=== PATIENT | female | born 2005 | race Two or more races ===

== ENCOUNTER 2024-06-25 04:31 | Inpatient (IN) | payer MEDICAID, SELFPAY ==
[2024-06-25] VITALS (22 sets, daily range): BP systolic 121–183; BP diastolic 63–112; PULSE 77–131; RESP 18; TEMP 36.8–37.2; O2SAT 96–100; BMI 35.6
[2024-06-25] MEDS: fentaNYL CIT INJ 50 mCg/ML AMP 2ML 100 MCG IV ×3 (05:17→07:27)
--- NOTE | 2024-06-25 05:26 | XR_ITS ---
Examination: age Limited Technique: Limited transabdominal sonographic images pelvis Indications: Pelvic contractions today, unknown presentation unknown weight Exam date and time: June 23, 2024 0550 hrs. Findings: Viable intrauterine gestation cephalic presentation spine anterior Estimated weight 3191.9 g Impression: Viable intrauterine gestation cephalic presentation
[2024-06-25 05:35] LABS: Basophils % (Auto) 0 % (0-2.5); Eosinophils # (Auto) 0.1 Thou/mm3 (0.0-0.5); Eosinophils % (Auto) 1 % (0-10); Hematocrit 40.5 % (36.0-46.0); Hemoglobin 13.6 g/dL (12.0-16.0); Immature Granulocytes % (Auto) 1 % (0-0); Immature Granulocytes Auto 0.13 Thou/mm3 (0.00-0.00); Lymphocytes # (Auto) 3.9 Thou/mm3 (1.0-4.8); Lymphocytes % (Auto) 26 % (10-50); Mean Corpuscular HGB Conc 33.6 g/dl (31.0-37.0); Mean Corpuscular Hemoglobin 29.2 pg (25.0-35.0); Mean Corpuscular Volume 87 fL (80-100); Monocytes # (Auto) 1.4 Thou/mm3 (0.0-0.8); Monocytes % (Auto) 9 % (0-12); Neutrophils # (Auto) 9.5 Thou/mm3 (1.8-7.7); Neutrophils % (Auto) 63 % (37-80); Nucleated Red Blood Cell % 0 /100 WBC (0); Platelet Count 140 Thou/mm3 (140-440); RDW Standard Deviation 43.2 fL (36.4-46.3); Red Blood Count 4.65 Miln/mm3 (4.00-5.20)
[2024-06-25 05:52] LABS: Fibrinogen 409 mg/dL (175-375); INR 0.9 (0.9-1.3); Prothrombin Time 10.3 Seconds (9.0-12.2)
[2024-06-25 05:54] LABS: Alanine Aminotransferase 12 U/L (10-49); Albumin, Serum 4.3 gm/dL (3.5-5.0); Albumin/Globulin Ratio 1.8 (1.2-2.2); Alkaline Phosphatase 216 U/L (46-116); Anion Gap 11 (7-16); Aspartate Amino Transferase 24 U/L (0-34); BUN/Creatinine Ratio 14 Ratio (12-20); Bilirubin,Total 0.3 mg/dL (0.3-1.2); Blood Urea Nitrogen 10 mg/dL (9-23); Calcium 9.6 mg/dL (8.3-10.6); Calcium (Corrected) 9.6 mg/dL (8.5-10.1); Carbon Dioxide 22.2 mMol/L (20.0-31.0); Chloride 102 mMol/L (98-107); Creatinine (Component) 0.7 mg/dL (0.6-1.3); Globulin 2.4 gm/dL (2.3-3.5); Glucose 98 mg/dL (74-106); Osmolality,Calculated 269 (275-295); Potassium 3.9 mMol/L (3.4-5.1); Sodium 135 mMol/L (136-145); Total Protein 6.7 gm/dL (5.7-8.2); Uric Acid 4.8 mg/dL (3.1-7.8); eGFR > 60 See Note
[2024-06-25 06:11] LABS: Syphilis Nonreactive (Nonreactive)
[2024-06-25] MEDS: MINERAL OIL 30 ML UDC TOP (06:58)
[2024-06-25] MEDS: OXYTOCIN in NS 20 units 20 UNIT/1,000 ML BAG 125 UNIT IV (07:15)
[2024-06-25] MEDS: LIDOCAINE HCL 1% 20 ML VIAL INFL (07:20)
[2024-06-25] MEDS: BENZO/LANO/ALOE (Dermoplast) 60 GM CAN 1 SPRAY TOP (07:32)
[2024-06-25] MEDS: TRANEXAMIC ACID 1,000 MG IVPB 1,000 MG/100 ML BAG 200 MG IV (07:32)
--- NOTE | 2024-06-25 07:37 | ESHP_ITS ---
Documentation for date of: 06/25/24 OB Labor/Induct. HPI History of Present Illness Chief complaint: 19 y/o 39w 1d presents to L&D in active labor at 6 cm : 1 Para: 0 Term pregnancies: 0 pregnancies: 0 Living children: 0 History of Abortions: Spontaneous and Elective: 0 History of Vaginal deliveries: 0 History of sections: No History of : No Date of last menstrual period: 09/25/23 USAMA: 07/01/24 Gestational Age (weeks): 39 Gestational Age (days): 1 Gestational age based on last menstrual period: 39 History of present illness: 19 y/o 39w 1d presents to L&D in active labor at 6 cm vertex breanne 2- 3 minutes SROM clear fluids, GBS neg. Blood Type is O+ and Rubella NI. has been complicated by GTHN on labetalol 100 mg once daily. EFW 4000g History of Present Dating criteria: LMP confirmed by 1st trimester US Adequate Care: Yes Ultrasounds: normal 1st trimester US and normal mid trimester US Obstetrical complications: gestational hypertension Labs Maternal Blood Type: O Pos Labs: Negative: RPR, Hepatitis B, Rubella Titre, HIV, Chlamydia, Gonorrhea and Group Beta Strep and Unknown: Herpes Type 1, Herpes Type 2 and Covid-19 Review of Systems Review of Systems Systems Reviewed: All systems reviewed, normal except as documented Past Medical History Surgical History SURGICAL: Negative Section Meds Home Medications and Allergies Home Medications ?Medication ?Instructions ?Recorded ?Confirmed ?Type folic acid 800 mcg tablet 800 mcg PO QDAY 03/01/24 03/01/24 History vits no.126-ferrous fum 1 tab PO QDAY 03/01/24 03/01/24 History 28 mg iron-folic acid 800 mcg tablet (Classic ) Allergies Allergy/AdvReac Type Severity Reaction Status Date / Time No Known Allergies Allergy Mild Uncoded 10/16/12 18:14 OB Exam Physical Exam Vital signs: Pulse BP Pulse Ox 120 H 141/75 H 100 06/25/24 07:22 06/25/24 07:22 06/25/24 04:42 Constitutional Constitutional: moderate distress (Secondary to painful contractions) Routine HEENT Exam Head: Present normocephalic and atraumatic Eye: Present EOMI, PERRL and normal accommodation ENT: Present mucous membranes moist Routine Neck Exam Neck: Present supple, full ROM and trachea midline Routine Respiratory Exam Respiratory: Absent respiratory distress Routine Cardiovascular Exam Cardiovascular: Present RRR Routine Abdominal Exam Abdominal: Present soft Comments: Gravid uterus Estimated weight is 4000 Routine Exam External: Present normal urethra appearance; Absent lesions Detailed Labor and Delivery Exam Dilation (cm): 6 Effacement (%): 100 Cervix position: mid station: 0 Consistency: soft Presentation: Vertex Membranes: ruptured Amniotic fluid: clear Baseline heart rate: 130 monitor accelerations: 15x15 monitor decelerations: None terminal computer operator variability: Moderate (11-25) Contraction frequency (min): 2-3 Contraction duration (sec): 40-60 Contraction intensity: Strong Routine Extremities Exam Extremities: Present full ROM Routine Back/Spine/Pelvis Exam Back/Spine: Present full ROM Routine Skin Exam Skin: Present intact, dry and warm Routine Neurological Exam Neurological: Present alert, oriented X3 and CN II-XII intact Routine Psychiatric Exam Psychiatric: Present normal affect and normal thought process OB Results Labs 06/25/24 04:55 06/25/24 04:55 Labs: Short CBC 06/25/24 Range/Units 04:55 WBC 15.0 H (4.5-11.0) Thou/mm3 Hgb 13.6 (12.0-16.0) g/dL Hct 40.5 (36.0-46.0) % Plt Count 140 (140-440) Thou/mm3 BMP 06/25/24 04:55 Sodium 135 L Potassium 3.9 Chloride 102 Carbon Dioxide 22.2 BUN 10 Creatinine 0.7 Glucose 98 Calcium 9.6 Liver Function 06/25/24 Range/Units 04:55 Total Bilirubin 0.3 (0.3-1.2) mg/dL AST 24 (0-34) U/L ALT 12 (10-49) U/L Alkaline Phosphatase 216 H (46-116) U/L Albumin 4.3 (3.5-5.0) gm/dL OB Assessment & Plan Assessment and Plan (1) Normal labor: Status: Acute (2) Gestational hypertension: Status: Acute (3) with 39 completed weeks gestation: Status: Acute Additional Plan Induction method: none Plan: anticipate NVD and consult MD gross Additional Plan Comment: Routine admit orders Continuous EFM PIH labs (2) Gestational hypertension Qualifiers: Trimester: third trimester Qualified Code(s): O13.3 - Gestational [- induced] hypertension without significant proteinuria, third trimester
--- NOTE | 2024-06-25 07:44 | OBDSUM_ITS ---
Data ([facility]) Data Hx Section: No Maternal Blood Type: O Pos Rubella Titre: Negative RPR: Non-reactive Labs: Negative: RPR, Hepatitis B, HIV, Chlamydia, Gonorrhea and Group Beta Strep and Unknown: Herpes Type 1 and Herpes Type 2 : 1 Para: 0 Term: 0 : 0 Livin : 0 Delivery Data ([facility]) Labor Data Stimulated/Augmented: No Induction: No ROM Date: 06/25/24 ROM Time: 03:40 Rupture Type: SROM Amniotic Fluid: Clear Delivery Data EDC: 07/01/24 EDC calculated by:: LMP/early US confirmation Labor Onset Stage 1 Date: 06/25/24 Labor Onset Stage 1 Time: 04:45 Labor Onset Stage 2 Date: 06/25/24 Labor Onset Stage 2 Time: 06:50 Delivery Date: 06/25/24 Delivery Time: 07:15 Gestational age (weeks): 39 Gestational age (days): 1 Placenta Delivery Date: 06/25/24 Placenta Delivery Time: 07:27 Delivered by: Christianne Adkins Delivery nurse: Adry De Wreath And Garland Maker Hand at delivery: No Support person(s) at delivery: FOB Other staff at delivery: Nursery Nurse Other staff at delivery: Syl Cabrera Delivery Method Delivery: Vaginal Delivery Type: Spontaneous Presentation: Vertex Anesthesia Type Primary Anesthesia: Local Delivery Room Medications Other Intrapartum Medications: No Post Delivery Medications N/A: No Placenta Placenta Delivery: Spontaneous Placenta Cultures Obtained: No Placenta Sent for Examination: No Cord Sample: Cord Blood Obtained Episiotomy Episiotomy: None Lacerations #1: Labial: Right labial Perineal repair Sutures used for repair: 3.0 Vicryl (CT) EBL Estimated blood loss (ml): 300 Umbilical Cord Umbilical Vessels: 3 Nuchal Cord: Not Applicable Body Cord: Not Applicable Additional Procedures Patient came in at 6 cm and became complete within an 40 minutes of arrival. After a few pushes patient had an of a viable male . Infant's anterior shoulder delivered with gentle downward traction subsequent delivery the posterior shoulder and the body without complications. placed on mother's abdomen. Vigorous cry upon delivery. Cord was clamped. Cut by FOB. Cord blood obtained. Three-vessel cord noted. Placenta expelled spontaneously and intact. Patient sustained a small right labial laceration repair. Repaired using a 4.0 Vicryl on an SH suture. Perineum intact. Excellent hemostasis achieved after vigorous fundal massage and removal of clots from the posterior fornix. EBL 300. Sponge and needle count correct. Mother and baby stable, skin to skin and bonding in LDR. Data ([facility]) [place] Data Gender: Male Weight Grams: 4030 1 Minute Total: 7 5 Minute Total: 8
--- NOTE | 2024-06-25 07:56 | PRELIM_ITS ---
Obstetric ultrasound (limited). June 25, 2024 0550 hours Clinical history: Presentation and EFW C omparison: No prior study is available for comparison. Findings:There is a gravid uterus with a fetus in cephalic presentation of mean gestational age 37 weeks and 6 days (by biometry). Estimated weight is 3191.9 grams+/- 472 grams. Estimated due date by ultrasound is 07/10/2024.Impression: Gravid uterus with a single fetus in cephalic presentation of mean gestational age 37 weeks 6 days. R eport Electronically Signed By: Juan Miguel Vines 06/25/2024 7:56:42 AM [EST]
[2024-06-25] MEDS: DOCUSATE SOD 100 MG CAPSULE PO (08:22)
[2024-06-25] MEDS: LABETALOL 100 MG TABLET PO (08:23)
[2024-06-25] MEDS: IBUPROFEN TAB 400 MG TABLET 800 MG PO (09:01)
[2024-06-25 13:03] LABS: Basophils % (Auto) 0 % (0-2.5); Eosinophils % (Auto) 0 % (0-10); Hematocrit 35.3 % (36.0-46.0); Hemoglobin 12.2 g/dL (12.0-16.0); Immature Granulocytes % (Auto) 1 % (0-0); Immature Granulocytes Auto 0.12 Thou/mm3 (0.00-0.00); Lymphocytes # (Auto) 1.9 Thou/mm3 (1.0-4.8); Lymphocytes % (Auto) 9 % (10-50); Mean Corpuscular HGB Conc 34.6 g/dl (31.0-37.0); Mean Corpuscular Hemoglobin 30.3 pg (25.0-35.0); Mean Corpuscular Volume 88 fL (80-100); Monocytes # (Auto) 1.3 Thou/mm3 (0.0-0.8); Monocytes % (Auto) 6 % (0-12); Neutrophils # (Auto) 18.4 Thou/mm3 (1.8-7.7); Neutrophils % (Auto) 84 % (37-80); Nucleated Red Blood Cell % 0 /100 WBC (0); Platelet Count 126 Thou/mm3 (140-440); RDW Standard Deviation 44.4 fL (36.4-46.3); Red Blood Count 4.02 Miln/mm3 (4.00-5.20); White Blood Count 21.8 Thou/mm3 (4.5-11.0)
[2024-06-25 19:16] LABS: Basophils % (Auto) 0 % (0-2.5); Eosinophils % (Auto) 0 % (0-10); Hematocrit 34.7 % (36.0-46.0); Hemoglobin 11.6 g/dL (12.0-16.0); Immature Granulocytes % (Auto) 1 % (0-0); Immature Granulocytes Auto 0.12 Thou/mm3 (0.00-0.00); Lymphocytes # (Auto) 2.5 Thou/mm3 (1.0-4.8); Lymphocytes % (Auto) 13 % (10-50); Mean Corpuscular HGB Conc 33.4 g/dl (31.0-37.0); Mean Corpuscular Hemoglobin 29.7 pg (25.0-35.0); Mean Corpuscular Volume 89 fL (80-100); Monocytes # (Auto) 1.7 Thou/mm3 (0.0-0.8); Monocytes % (Auto) 9 % (0-12); Neutrophils # (Auto) 14.3 Thou/mm3 (1.8-7.7); Neutrophils % (Auto) 77 % (37-80); Nucleated Red Blood Cell # 0.02 Thou/mm3 (0.00-0.00); Nucleated Red Blood Cell % 0 /100 WBC (0); Platelet Count 110 Thou/mm3 (140-440); RDW Standard Deviation 45.7 fL (36.4-46.3); White Blood Count 18.6 Thou/mm3 (4.5-11.0)
[2024-06-26 05:35] VITALS: BP 128/76; PULSE 91; RESP 16; TEMP 36.9; O2SAT 97
[2024-06-26 07:52] VITALS: BP 132/82; PULSE 99; RESP 18; TEMP 36.8; O2SAT 98
[2024-06-26 08:26] VITALS: BP 132/82; PULSE 99
[2024-06-26] MEDS: LABETALOL 100 MG TABLET PO (08:26)
[2024-06-26] MEDS: DOCUSATE SOD 100 MG CAPSULE PO (08:27)
--- NOTE | 2024-06-26 09:07 | PD.LDDS ---
DS: Providers Provider Date of admission: 06/25/24 07:15 Primary care physician: Physician No Primary/Family Admitting Provider: Christianne Adkins CNM Attending Provider on Admission: Christianne Adkins CNM Attending Provider on DC: Christianne Adkins CNM Discharging Provider: Christianne Adkins CNM Anticipated date of discharge: 06/26/24 DS: Diagnosis Discharge Diagnosis (1) Normal spontaneous vaginal delivery: Status: Acute (2) Encounter for care of lactating mother: Status: Acute (3) Rubella nonimmune status, delivered, current hospitalization: Status: Acute (4) with 39 completed weeks gestation: Status: Acute (5) Gestational hypertension: Status: Acute (6) Normal labor: Status: Acute Problem List Completed Was Problem List Reviewed/Reconciled?: Yes Summary/Hosp Course Brief History: 19 y/o 39w 1d presents to L&D in active labor at 6 cm vertex breanne 2-3 minutes SROM clear fluids, GBS neg. Blood Type is O+ and Rubella NI. has been complicated by GTHN on labetalol 100 mg once daily. EFW 4000g 06/25/24: Patient came in at 6 cm and became complete within an 40 minutes of arrival. After a few pushes patient had an of a viable male infant. 's anterior shoulder delivered with gentle downward traction subsequent delivery the posterior shoulder and the body without complications. Infant placed on mother's abdomen. Vigorous cry upon delivery. Cord was clamped. Cut by FOB. Cord blood obtained. Three-vessel cord noted. Placenta expelled spontaneously and intact. Patient sustained a small right labial laceration repair. Repaired using a 4.0 Vicryl on an SH suture. Perineum intact. Excellent hemostasis achieved after vigorous fundal massage and removal of clots from the posterior fornix. EBL 300. Sponge and needle count correct. Mother and baby stable, skin to skin and bonding in LDR. 06/26/24: day 1. Patient is stable and afebrile doing well. No complaints. Breast-feeding infant well. Denies dizziness shortness of breath. Uterus is nontender fundus firm minimal lochia. Discharge instructions given patient to follow-up with Christianne Adkins CNM in 3 weeks Peripartum Data Delivery Method: Normal Vaginal Delivery Episiotomy Description: None Laceration Description: yes, no and see Delivery Summary complications: none 1: Gender: Male Disposition of : home Status at Discharge Cognitive/behavioral status at discharge: Alert and oriented x 3 Functional status at discharge: independent ambulation Overall status at discharge: patient is progressing back to baseline Time Spent with Patient Time attestation: Total time spent providing and/or coordinating discharge services: Time spent: Greater than 30 minutes Exam Vital Signs Pulse BP Pulse Ox 117 H 172/69 H 100 06/25/24 07:42 06/25/24 07:44 06/25/24 04:42 Constitutional Constitutional: no acute distress Routine HEENT Exam Head: Present normocephalic and atraumatic Eye: Present EOMI, PERRL and normal accommodation ENT: Present mucous membranes moist Routine Neck Exam Neck: Present full ROM Routine Respiratory Exam Respiratory: Present chest non-tender, lungs clear, normal breath sounds and no resp distress Routine Cardiovascular Exam Cardiovascular: Present RRR Routine Abdominal Exam Abdominal: Present soft and normoactive bowel sounds; Absent tenderness or distended Comments: Uterus nontender Fundus firm Routine Exam Patient deferred: external exam Routine Extremities Exam Extremities: Present full ROM, pulses intact and normal capillary refill; Absent calf tenderness or tenderness Routine Back/Spine/Pelvis Exam Back/Spine: Present full ROM Routine Skin Exam Skin: Present intact, dry and warm Routine Neurological Exam Neurological: Present alert, oriented X3 and CN II-XII intact Routine Psychiatric Exam Psychiatric: Present normal affect and normal thought process Discharge Plan Plan Patient Disposition: HOME (Self Care) Patient condition on transfer: Stable Prescriptions/Referrals Prescriptions/Med Rec: New ibuprofen 800 mg tablet 800 mg PO Q6H MDD 4 PRN (Reason: pain) Qty: 120 0RF docusate sodium [Colace] 100 mg capsule 100 mg PO BID Qty: 60 0RF lanolin 50 % ointment 1 applic topical TID PRN (Reason: skin irritation) Qty: 15 0RF Continued folic acid 800 mcg tablet 800 mcg PO QDAY Patient Comments: take 1 tablet by mouth once daily Classic 28 mg iron- 800 mcg tablet 1 tab PO QDAY Patient Comments: take 1 tablet by mouth once daily Referrals: No Primary/Family,Physician [Primary Care Provider] - Patient/Caregiver Discharge Instructions Meds to Beds: No Discharge Activity: activity as tolerated Other Discharge Activity Instructions:: Follow-up with Christianne Adkins CNM in 3 weeks Education Materials: After a Vaginal , How to Breastfeed, : Caring for Yourself Print Language: Romanian Stand Alone Forms: [facility] Award Info., Patient Portal Info Letter Vaccines Vaccines Given During Stay: MMR Discharge Order Discharge Orders: Discharge (Routine); Ordered 06/26/24 Ordered By: Christianne Adkins Planned Discharge Date 06/26/24 (5) Gestational hypertension Qualifiers: Trimester: third trimester Qualified Code(s): O13.3 - Gestational [-induced] hypertension without significant proteinuria, third trimester
== END 2024-06-26 12:07 | disposition home or self-care (01) | DRG 560 ==
LOC: S4SX 07:53 → S4NX 09:54
PROVIDERS: Admitting Provider Nurse Practitioner Women's Health; Visit Provider Nurse Practitioner Women's Health
DX: O13.4 Gestational [pregnancy-induced] hypertension without significant proteinuria, complicating childbirth (principal); Z37.0 Single live birth; Z3A.39 39 weeks gestation of pregnancy; O70.0 First degree perineal laceration during delivery; Z78.9 Other specified health status
CPT/HCPCS: 36415; 59025; 59409; 76815; 80053; 82570; 84156; 84166; 84550; 85025; 85384; 85610; 85730; 86780; 86850; 86900; 86901; 94762; J2590; J3010; J3490; A9270